=== PATIENT | male | born 1960 | race African-American/Black ===

== ENCOUNTER 2017-04-06 04:35 | Emergency (ER) | payer OTHER ==
[~2017-04-06] VITALS: Ht 185.4 cm; Wt 95.3 kg
--- NOTE | 2017-04-06 04:45 | NUR ---
TO BED 7 A 57 YO MALE PATIETN BIBRA 39 ABD PAIN X 1 DAY - N/V. NAD NOTED. VSS. PLACED ON VS MONITORING. GOWNED. COMFORT MEASURES RENDERED.
[2017-04-06] MEDS ORDERED: IV NS 0.9% 500 ML BAG IV ONE (05:00)
[2017-04-06] MEDS ORDERED: ONDANSETRON HCL/PF 4 MG/2 ML VIAL IVP ONE (05:00)
[2017-04-06] MEDS ORDERED: HYDROMORPHONE INJ 2 MG/ML DISP.SYRIN IV ONE (05:00)
[2017-04-06] MEDS ORDERED: ONDANSETRON HCL/PF 4 MG/2 ML VIAL ONE (05:18)
[2017-04-06] MEDS ORDERED: HYDROMORPHONE 1 MG/1 ML DISP.SYRIN ONE (05:33)
--- NOTE | 2017-04-06 05:50 | NUR ---
STARTED A SALINE LOCK ON THE RIGHT HAND G22.
--- NOTE | 2017-04-06 05:55 | NUR ---
MEDICATED PATIENT ORDERED BY DR HUGHES.
[2017-04-06 06:00] LABS: BASOPHILS % (AUTO) 0.6 % (0.0-2.0); EOSINOPHILS # (AUTO) 0.1 /CMM (0.0-0.7); EOSINOPHILS % (AUTO) 2.9 % (0.0-6.0); HEMATOCRIT 50 % (39-51); HEMOGLOBIN 15.8 g/dL (13.5-17.5); LYMPHOCYTES # (AUTO) 1.4 /CMM (0.8-4.8); LYMPHOCYTES % (AUTO) 38.1 % (20.0-44.0); MEAN CORPUSCULAR HEMOGLOBIN 28 PG (26.0-33.0); MEAN CORPUSCULAR HGB CONC 32 g/dl (31.0-36.0); MEAN CORPUSCULAR VOLUME 87 fL (80-96); MONOCYTES # (AUTO) 0.4 /CMM (0.1-1.30); MONOCYTES % (AUTO) 10.1 % (2.0-12.0); NEUTROPHILS # (AUTO) 1.8 /CMM (1.8-8.9); NEUTROPHILS % (AUTO) 48.3 % (43.0-81.0); PLATELET COUNT (AUTO) 269 /CMM (150-450); RDW COEFFICIENT OF VARIATION 14.8 (11.5-15.0); RED BLOOD CELL COUNT(AUTO) 5.72 MIL/uL (4.5-6.0); WHITE BLOOD COUNT (AUTO) 3.8 K/uL (4.3-11.0)
--- NOTE | 2017-04-06 06:04 | NUR ---
BACK FROM CT.
--- NOTE | 2017-04-06 06:15 | NUR ---
COLLECTED URINE SAMPLE VIA CLEAN CATCH, SENT TO LAB.
[2017-04-06 06:18] LABS: CALCIUM, SERUM 9.1 mg/dL (8.5-10.1); CARBON DIOXIDE 31 mmol/L (21-32); CHLORIDE 102 mmol/L (98-107); CREATININE 1.2 mg/dL (0.6-1.3); GLUCOSE 95 mg/dL (74-106); INR 0.98 (0.87-1.13); PROTHROMBIN TIME 10.2 SECS (9.5-12.7); SODIUM SERUM 138 mmol/L (136-145); UREA NITROGEN, BLOOD 21 mg/dL (7-18)
[2017-04-06 06:21] LABS: ALANINE AMINOTRANSFERASE 49 U/L (12-78); ALBUMIN 3.4 g/dL (3.4-5.0); ALKALINE PHOSPHATASE 70 U/L (46-116); ASPARTATE AMINOTRANSFERASE 26 U/L (15-37); BILIRUBIN,DIRECT 0.1 mg/dL (0.0-0.2); BILIRUBIN,TOTAL 0.4 mg/dL (0.2-1.0); LIPASE 133 U/L (73-393); TOTAL PROTEIN, SERUM 7.3 g/dL (6.4-8.2)
[2017-04-06 06:24] LABS: TROPONIN I < 0.017 ng/mL (0.00-0.056)
[2017-04-06 06:38] LABS: APPEARANCE,URINE CLEAR (CLEAR); BILIRUBIN,URINE NEGATIVE (NEGATIVE); BLOOD, URINE NEGATIVE Ery/uL (NEGATIVE); COLOR,URINE YELLOW (YELLOW); KETONES,URINE NEGATIVE (NEGATIVE); LEUKOCYTE ESTERASE ,URINE NEGATIVE (NEGATIVE); NITRITE, URINE NEGATIVE (NEGATIVE); PH,URINE 7.5 (5.0-8.0); PROTEIN,URINE NEGATIVE (NEGATIVE); UGLUCOSE NEGATIVE (NEGATIVE); UROBILINOGEN,URINE 0.2 EU/dL (0.2)
--- NOTE | 2017-04-06 06:40 | NUR ---
[facility] CALLED ETA 30 MINUTES
--- NOTE | 2017-04-06 06:50 | NUR ---
IZZY BULLOCK CALLED AND INFORMED PATIENT IS COMING BACK TO FACILITY AND THEY STATE HIS BED IS WAITING FOR HIM
--- NOTE | 2017-04-06 07:29 | NUR ---
report given to Steve YORK for mora.
--- NOTE | 2017-04-06 07:35 | NUR ---
IV removed. Catheter intact and site benign. Pressure and 4x4 applied to site. No bleeding noted. Patient discharged back to [facility] in stable condition. Written and verbal after care instructions given. Patient verbalizes understanding of instruction.
[2017-04-06 08:04] VITALS: BP 129/74
--- NOTE | 2017-04-06 08:10 | NUR ---
[facility] called, new eta 40 more min.
== END 2017-04-06 07:30 ==
LOC: ER 04:44
DX: R10.84 Generalized abdominal pain (principal); R11.0 Nausea; F31.9 Bipolar disorder, unspecified
CPT/HCPCS: 36415; 71010; 74176; 80048; 80076; 81001; 83690; 84484; 85025; 85730; 93005; 96374; 96375; 99285; A4606; J1170; J2405; J7040; Z7610; 81000-TC